=== PATIENT | female | born 1985 | race African-American/Black ===

== ENCOUNTER 2017-09-04 14:55 | Outpatient (CLI) | payer MEDICAID, SELFPAY ==
[2017-09-04 15:29] VITALS: BMI 55.1
[2017-09-04 16:27] LABS: Hematocrit 34.3 % (37-47); Hemoglobin 11.3 g/dl (12.0-15.0); Mean Corp Hgb Conc 32.9 g/gl (32-36); Mean Corpuscular Hgb 28.5 pg (27.0-32.0); Mean Corpuscular Volume 86.4 fL (81-99); Mean Platelet Vol. 9.5 fl (6.2-12.0); Platelet Count 236 K/mm3 (150-450); RBC Distribution Width CV 13.5 % (11.6-14.6); RBC Distribution Width SD 42.7 fl (35.1-43.9); Red Blood Count 3.97 M/mm3 (4.2-5.4); White Blood Count 6.4 K/mm3 (4.4-11.0)
[2017-09-04 17:01] LABS: Prothrombin Time (Protime)PT. 13.4 SECONDS (11.7-14.9)
[2017-09-04 17:02] LABS: Partial Thromboplast Time 30.7 Seconds (24.1-36.2)
[2017-09-04 17:08] LABS: AST(SGOT) 10 U/L (15-37); Alanine Aminotransfer ALT/SGPT 9 U/L (13-56); EST Glomerular Filtration Rate 196 mL/min (>60); Est Glom Filt Rate - Afr Amer 238 mL/min (>60); Scan Indicated on CBC? Y/N NO; Uric Acid 4.1 mg/dL (2.6-6.0)
[2017-09-04 17:17] LABS: Protein, Urine (Random) 11.8 mg/dL (<11.9); Protein:Creat Ratio 87 mg/g CRE (0-200)
--- NOTE | 2017-09-04 20:09 | OB.TRI.NOTE ---
History of Present Illness Date of Service: 09/04/17 Was patient seen by the physician?: No Reason For Visit: R/O PE Date of Service: 09/04/17 Final SHERRON: 11/10/17 Gestational age: 30 Weeks and 3 Days Home Medications Medication Instructions Recorded Vits [Prenatabs FA] 1 tablet PO DAILY 09/04/17 Allergies No Known Allergies Allergy (Verified 09/04/17 17:24) NST - FHR Rate Baby A Baseline: 145 Variability:: Moderate Accelerations:: 15 x 15 Decelerations:: Variable NST Reactive:: Yes Uterine Activity:: None Impression/Plan A: Elevated weight gain P: 1) Follow up in 3 days for BP check in office 2) Labs normal, 24hr urine to be done, started on unit and to return tomorrow.
[2017-09-05 19:24] LABS: 24 Hour Urine Protein 124.3 mg/24HR (<150 MG/24HR); 24HR. UA Prot. Total Volume 1100 mL; 24HR. Urine Creatinine 2.04 g/24 HR (0.70-1.90); Urine Protein (24 Hour) 11.3 mg/dL (<11.9)
== END 2017-09-04 18:15 | disposition home or self-care (01) ==
LOC: WPOUT 15:27 → WP 15:27
PROVIDERS: Visit Provider Advanced Practice Midwife
DX: O26.03 Excessive weight gain in pregnancy, third trimester (principal); Z3A.30 30 weeks gestation of pregnancy
CPT/HCPCS: 36415; 59025; 59050; 81050; 82565; 82570; 84156; 84450; 84460; 84550; 85027; 85610; 85730; 99218; G0378

== ENCOUNTER 2017-09-17 18:20 | Outpatient (CLI) | payer MEDICAID, SELFPAY ==
[2017-09-17 18:45] VITALS: BMI 54.8
--- NOTE | 2017-09-17 19:19 | OB.TRI.NOTE ---
History of Present Illness Date of Service: 09/17/17 Was patient seen by the physician?: Yes Reason For Visit: R/O LABOR Final SHERRON: 11/10/17 Gestational age: 32 Weeks and 2 Days Home Medications Medication Instructions Recorded Vits [Prenatabs FA] 1 tablet PO DAILY 09/04/17 Allergies No Known Allergies Allergy (Verified 09/04/17 17:24) NST - FHR Rate Baby A Baseline: 140 Variability:: Moderate Accelerations:: 15 x 15 Decelerations:: Variable NST Reactive:: Yes Uterine Activity:: quiet Impression/Plan Reactive NST for headache in Headache - mild - patient advised to take tylenol & rest GERD - advised on pepcid Call office in am if headache persists Advised ED evaluation for severe headache or vision changes
== END 2017-09-17 19:45 | disposition home or self-care (01) ==
LOC: WPOUT 18:24 → WP 18:25
PROVIDERS: Visit Provider Obstetrics & Gynecology
DX: O26.893 Other specified pregnancy related conditions, third trimester (principal); R51 Headache; K21.9 Gastro-esophageal reflux disease without esophagitis; Z3A.32 32 weeks gestation of pregnancy
CPT/HCPCS: 59025; 59050; 99218; G0378

== ENCOUNTER 2017-11-09 21:10 | Inpatient (IN) | payer MEDICAID, SELFPAY ==
--- NOTE | 2017-11-09 21:10 | DT_ITS ---
This patient was seen during an EMR downtime November 09, 2017 - November 16, 2017. This patient may have a combination of paper and electronic documentation or all paper documentation. All documentation is viewable within the e-chart portion of [email or web address] for each patient visit.
--- NOTE | 2017-11-10 01:15 | PLAC_PTH ---
PATIENT: DIA HINTON LOC: [facility] U#:[id number] AGE/SX: 32/F ROOM: WP004 RE11/09/[address]: Dr. Judith Hester MD : 1985 BED: 1 DIS: 11/12/2017 SPEC #: [id number] RECD: 11/10/17 04:28 STATUS: ANNE RETamra #: [id number] EUSEBIO: 11/10/17 01:[address]: Judith Hester DEPT: SURGICAL PATHOLOGY RECD BY: Madeline Knenedy ENTERED: 11/14/17 11:17 SP TYPE: PLACENTA OTHR DR: No Primary Care Phys Tissues: Placenta, NOS Procedures: Surgery Specimen Level V HEADER OPERATION: Not noted PRE-OP DIAGNOSIS: Meconium fluid, nonreassuring FHTS TISSUE SUBMITTED: Placenta MICROSCOPIC DIAGNOSIS Placenta: Placental disc - third trimester placenta (586 gm). - Multiple areas of intraparenchymal hemorrhage. - Focal mild acute vasculitis of subamniotic blood vessels. - surface with fibrinous plaque and focal area of squamous metaplasia and hyperkeratosis. See comment. Membranes ? pigment-laden macrophages consistent with meconium staining. Umbilical cord - three blood vessels and acute funisitis. SJ:maryanne 11/14/17 COMMENT The granular deposit on the surface of the placenta shows areas of squamous metaplasia and hyperkeratosis. MICROSCOPIC DESCRIPTION Slides are reviewed. GROSS DESCRIPTION SPECIMEN: PLACENTA / CLINICAL INFORMATION: A. Weight: Unavailable B. Gestational Age: Unavailable C. Sex: Male PLACENTAL WEIGHT (POST FIXATION): 586 gm PLACENTAL DIMENSIONS: 18 x 15 x 4 cm PLACENTAL SHAPE: Usual ovoid PLACENTAL WEIGHT FOR GESTATIONAL AGE: Within 10-99th percentile. MEMBRANES - Present A. Insertion: Marginal B. Site of rupture from edge: 5 cm from edge of placental disc C. Color of membrane: Parker-greenish consistent with meconium staining D. Abnormalities: None UMBILICAL CORD - Present A. Color: Praker-barahona B. Insertion: Paracentral C. Length: 54 cm D. Diameter: 1.4 cm E. Number of vessels: Three F. Abnormalities: None PLACENTAL DISC - Present A. Color of surface: Parker-barahona B. surface abnormalities: The surface shows multiple plaques and greenish-parker colored granular deposits. C. Maternal cotyledons: Intact with minimal tears D. Attached retro placental clot: No clot E. Cut surface: Dark red and spongy F. Lesions: None G. Separate clot: Absent The maternal surface shows central depression with some blood clots. Sections reveal three pink-red lesions, the largest measuring 2 cm in greatest dimension. SECTIONS SUBMITTED: 1. Membrane roll 2. Cord, maternal end, lesion on surface 3. Cord, end, lesion on surface 4. Placental disc, and maternal surfaces, lesion 5. Placental disc, and maternal surfaces, lesion 6. Placental disc, and maternal surfaces, lesion, central area of depression with blood clots and plaque on surface 7. Placental disc, and maternal surfaces 8. Membrane SJ:maryanne 11/10/17 TC:2 CPT: 14483
--- NOTE | 2017-11-11 16:03 | CASEMGMT ---
Social Work Assessment Labor and Delivery Unit Date of Referral: 11/11/17 Time of Referral: 0830 Referred By: verbal notification from nursing Date of Intervention: 11/11/2017 Time of Intervention: 1540 Reason for Referral: Late care, housing instability during History obtained from: Medical record and mother of baby (MOB) Agapito Gutierrez Household composition: MOB reports to live in apartment with father of baby (FOB) Libby Gutierrez and 4 older children. Plan is to take infant to this home at discharge. MOB has been living in this home since June of 2017. Patient's parent/guardian status: MOB reports has been with FOB for about 4 years. MOB and FOB are currently . MOB and FOB now share 2 children together and MOB has 3 children from previous marriage. Minor Children: Jean (age 14), Diandre (age 11), Audie (age 4), Acoridae (2 years) and Ayamide (6-5-18). MOB denies any form of abuse in relationship with FOB. The father to the older children is inconsistent in involvement with older children. Medical History: MOB is G5, P4 to 5 after delivering . MOB with later care starting at 17 weeks. MOB reports was unaware of for some time, that actually thought had cancer and when went in to figure out what was wrong MOB found out was . was born via repeat caesarian section with Apgars of 8 and 9 at 1 and 5 minutes of life. Educational Status: MOB graduated high school and has some college. MOB denies any issues with reading, writing, or learning comprehension. Financial Status: NARCISO currently stays at home. 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 Supplies: MOB reports to have needed baby supplies including crib, pack-n-play, clothing, diapers, wipes, getting a breast pump. MOB plans to provide breast milk only. Childcare/Caregiver(s): MOB Transportation: Denies any issues with transportation. Programs/Agencies Involved: MOB reports to have food and medical through [employer]. Reports to have WIC. MOB did use [employer] earlier in the when the family became homeless, in order to access some housing assistance in the area. Children Services/Legal Issues: MOB denies legal issues, denies past or present involvement with any children services agency. Behavioral Health Issues: MOB denies any history of depression, anxiety, or suicidal ideation. Through conversation MOB did disclose some past relationship issues which MOB received some support for. MOB denies any alcohol use or abuse, denies use in . MOB admits to history of smoking marijuana, prior to knowledge of and did quit shortly after finding out. MOB reports there was one lapse when MOB became stressed out that used, but that this was a onetime thing after knowledge of . MOB denies intent to use marijuana again and able to voice that knows breast feeding and marijuana are not recommended. MOB denies other illicit drug corinne history. Drug Screens: positive test 06-04-17 for marijuana, no further retesting. Babys urine at delivery is negative. Meconium to be collected. Family/Social Stressors: MOB reports unplanned , thought had cancer so was quite surprised about this . MOB reports the FOB then lost job, so the family lost their housing and credit was impacted, leaving the family homeless for a time. MOB reports relocated to [place] as found this area to have some housing assistance they could tap into. MOB reports spent a short time at [employer] and the family was able to secure housing about 6 months ago in June 2017. Support Systems: MOB reports FOB is a strong support. MOB reports to have a good [employer] family at this time. MOB reports feels able to seek out help and support with people from [facility]. ASSESSMENT: MOB reports to feel connected to baby, to love the baby, but does admit that had hoped for a girl. MOB reports to be accepting that God has plans for MOB and MOB having boys. MOB reports to have supplies for baby, ability to provide for other children, and to have support in this area. MOB denies intent to restart use of marijuana, especially while breast feeding. MOB engaged with social studies department chair, though at first was guarded as evidenced by shortened answers and minimal eye contact. However as time went on, MOB became more talkative and discussed frustrations and recent stressors in life, improved eye contact and brighter affect noted. MOB held good eye contact overall, appropriate mood and affect, speech within normal limits. MOB held baby during social work visit, attentive to baby, held baby to breast, smiled and gently talked to baby. MOB educated to need for children services involvement should babys meconium drug screen come back positive for any substances. MOB accepted this education. PLAN: Social work to follow up with MOB on 11-12-17 to provide community resource lists. -GLENDA Gray, DIE CAST SUPERVISOR
--- NOTE | 2017-11-12 16:06 | CASEMGMT ---
Social Work Note Labor and Delivery Unit Followed up with mother of baby (MOB) and provided packet on depression, risks for this, tips on self-care and online supports for such. Provided resources list for [facility], [facility] information, shaken baby/tips to soothe baby, and safe sleeping information. No other services requested or indicated other than monitoring for meconium drug screen results. MOB and baby discharging home today. _-WILNER Gray, SOFTWARE ENGINEERING ANALYST
[2017-11-13 08:58] LABS: Hematocrit 36.9 % (37-47); Mean Corp Hgb Conc 32.5 g/gl (32-36); Mean Corpuscular Hgb 28.2 pg (27.0-32.0); Mean Corpuscular Volume 86.6 fL (81-99); Red Blood Count 4.26 M/mm3 (4.2-5.4)
[2017-11-13 08:59] LABS: Mean Platelet Vol. 9.8 fl (6.2-12.0); Platelet Count 318 K/mm3 (150-450); RBC Distribution Width SD 43.1 fl (35.1-43.9); Scan Indicated on CBC? Y/N NO
== END 2017-11-12 13:10 | disposition home or self-care (01) | DRG 371 ==
PROVIDERS: Admitting Provider Obstetrics & Gynecology; Visit Provider Obstetrics & Gynecology
DX: O34.211 Maternal care for low transverse scar from previous cesarean delivery (principal); N85.8 Other specified noninflammatory disorders of uterus; Z3A.40 40 weeks gestation of pregnancy; Z37.0 Single live birth; O99.214 Obesity complicating childbirth; E66.01 Morbid (severe) obesity due to excess calories; Z68.41 Body mass index [BMI] 40.0-44.9, adult; O77.0 Labor and delivery complicated by meconium in amniotic fluid; O76 Abnormality in fetal heart rate and rhythm complicating labor and delivery; O69.1XX0 Labor and delivery complicated by cord around neck, with compression, not applicable or unspecified
CPT/HCPCS: 59025; 59050; 76815; 85027; 86850; 86900; 88307; 99218; J7120; A4216; G0378; J2405

== ENCOUNTER 2020-10-21 12:26 | Emergency (ER) | payer MEDICAID, SELFPAY ==
[2020-10-21 12:28] VITALS: BP 161/75; PULSE 112; RESP 18; TEMP 36.3; O2SAT 94; BMI 56.6
--- NOTE | 2020-10-21 12:48 | US_ITS ---
EXAM: US SECOND OR THIRD TRIMESTER , TRANSABDOMINAL : 1985 CLINICAL INDICATION: preg and bleeding. //ectopic vs miscarriage TECHNIQUE: Transabdominal obstetrical ultrasound of the maternal pelvis and a second or third trimester with image documentation. This report was created using [employer] report generation technology. COMPARISON: None. FINDINGS: FETUS: There is a single intrauterine gestation HEART RATE: heart rate measured 145 bpm. PRESENTATION: There is an intrauterine gestation in the cephalic position. PLACENTA: The placenta is posterior. No placenta previa. No abruption. AMNIOTIC FLUID: The deepest vertical pocket of amniotic fluid is 3.5 cm. ANATOMY: Intracranial/face anatomy not seen. Spinal anatomy not seen. Abdominal anatomy not seen. Extremities not seen. Four-chamber heart not seen. Umbilical cord not seen. BIOMETRICS GESTATIONAL AGE: Gestational age is 14 weeks 6 days. SHERRON: SHERRON is 04/15/2021. EFW: Estimated weight is 157 g. BPD: Biparietal diameter measures 3.3 cm age 16 weeks 2 days. HC: Head circumference measures 13.1 cm age 16 weeks 4 days. AC: Abdominal circumference measures 10.4 cm age 16 weeks 2 days. FL: Femur length measures 2.2 cm age 16 weeks 4 days. MATERNAL: UTERUS: The uterus measures 17.6 x 9.5 x 12.4 cm. No myometrial mass. CERVIX: The cervix measures 3.4 cm. ADNEXA: The left ovary measures 4.5 x 2.9 x 2.8 cm. Right ovary is not visualized. FREE FLUID: None. US/OB Limited With Biometrics IMPRESSION: Intrauterine gestation with an average ultrasound age of 16 weeks 3 days and ultrasound estimated due date of 04/04/2021. heart rate is 145 bpm. at 1426 Reported and signed by: Ronaldo Romero MD Electronically Signed: Ronaldo Romero MD at 14:25 EDT Tel , Service support ,
--- NOTE | 2020-10-21 12:50 | EDS_ITS ---
HPI HPI - Female History of Present Illness Chief Complaint: Vag Bld, Preg Informant: patient Pain Pain: Positive for Pelvic Pain Onset: Today Timing: Intermittent Current Severity: Mild Maximum Severity: Mild Bleeding Issue: Positive for Vaginal bleeding Onset: Yesterday Timing: Intermittent Current Severity: Spotting Associated Symptoms Associated Symptoms: Negative for Dysuria and Frequency Test: Positive Sexually: Positive for Active Control: No control P: 5 Ab: 0 Narrative Narrative: 35-year-old female G6, P5 Ab0. States she just found out last week that she was on her home test. Says her last menstrual period was around July 09. She did not have a. In August or October. States yesterday she started having mild discomfort in her left lower pelvis with mild spotting. She denies any heavy bleeding. No dysuria. No fever. She is never had a miscarriage or an ectopic. She denies any [employer] surgeries except 2 prior C-sections. She is never had any PID other pelvic infections. Prior similar symptoms: No Recent Illness/Hospitalization: No PFSH PFSH Home Medications vit,[id number] [Prenatabs FA] 1 tab PO DAILY 09/04/17 [History Last Taken 09/17/17 10:00 1] Allergy/AdvReac Type Severity Reaction Status Date / Time No Known Allergies Allergy Verified 10/21/20 12:31 Surgical History (Updated 10/21/20 @ 14:34 by Michael Graf) History of arthroplasty of left ankle Social History Smoking Status: Never smoker ROS ROS ED ROS Narrative Patient states now that she knows she is she has had some morning nausea in the last month or 2. She denies other symptoms. Review of Systems ROS Unobtainable: Denies due to encephalopathy Constitutional Constitutional ED: Denies chills or fever(s) Eyes Eyes: Denies change in vision ENT ENT ED: Denies ear pain or sore throat Cardiovascular Cardiovascular: Denies chest pain Respiratory/Chest Respiratory/Chest: Denies cough or dyspnea Gastrointestinal Gastrointestinal: Reports abdominal pain and nausea; Denies constipation, diarrhea or vomiting Genitourinary Genitourinary ED: Denies dysuria or hematuria Musculoskeletal Musculoskeletal: Denies myalgias Integumentary Denies rash Neurologic Neurologic: Denies headache(s) Psychiatric Psychiatric: Denies depression Endocrine Endocrinology: Denies polyuria Hematologic/Lymphatic Hematologic/Lymphatic: Denies easy bruising Allergic/Immunologic Allergic/Immunologic ED: Denies urticaria EXAM Physical Exam Narrative Exam Narrative: Well-appearing 35-year-old female. Initial blood pressure 161/75. She does not look septic or toxic. No acute distress. Lungs are clear. Heart regular rhythm no murmur rate about 100. Abdomen soft. Minimal lower left pubic tenderness. No rebound or guarding. No rigidity. Right upper and right lower quadrant unremarkable. No peritoneal signs. Moving all 4 extremities. No edema. Neurologically she is awake and alert. Patient is deferring a pelvic exam at this time. Const Vital Signs: 10/21/20 12:28 10/21/20 14:32 Temperature 97.4 F L Temperature Source Temporal Pulse Rate 112 H Respiratory Rate 18 16 Blood Pressure 161/75 H Blood Pressure Mean 103 Pulse Ox 94 Oxygen Delivery Method Room Air Positive well nourished and well developed General Appearance ED: well developed HEENT Reports moist mucous membranes Negative for trauma or tenderness Eyes PERRL and EOMs intact bilaterally Neck no lymphadenopathy, supple and no JVD Chest Wall inspection of chest normal Resp normal respiratory effort and clear to auscultation bilaterally Cardio regular rate and regular rhythm GI normal to inspection, nondistended, normoactive bowel sounds and soft to palpation GI Narrative: Minimal tenderness left Palpation: tender no CVA tenderness Back/Spine no CVA tenderness Extremity normal to inspection and full ROM General Extremety ED: Negative for edema or tenderness General Extremity: Negative for edema Neuro oriented x3 and CN's II-XII intact bilaterally Sensorium / Orientation: alert, oriented to person, oriented to place and oriented to time Psych mental status grossly normal Skin no rashes or lesions noted MDM MDM MDM Narrative Medical decision making narrative: 35-year-old G6, P5 Ab0 female with positive home test and small vaginal spotting and mild left lower quadrant pelvic discomfort. Her blood type is O+ from prior labs. We will obtain screening labs and a pelvic ultrasound. Lab Data Attestation: I reviewed the patient's lab results. Lab results narrative: CBC unremarkable white count of six hemoglobin 11.8. UA shows ketones but no signs of infection. Quant is pending. Prior blood type was O+. Ultrasound shows a intrauterine at 16 weeks and 3 days estimated date of delivery is 04/15/2021 and a fetus's heart rate is 145. On repeat exam patient is doing well at 3:04 PM. Resting comfortably. She and I went over all test results. [facility] they are her established MANAGEMENT PROFESSIONAL. Labs: Laboratory Results - last 24 hr 10/21/20 10/21/20 14:32 14:45 WBC 6.3 RBC 4.21 Hgb 11.8 L Hct 37.1 MCV 88.1 MCH 28.0 MCHC 31.8 L RDW Std Deviation 43.2 RDW Coeff of Rhonda 13.3 Plt Count 276 MPV 9.3 Immature Gran % (Auto) 0.300 Neut % (Auto) 65.0 Lymph % (Auto) 25.3 [place] % (Auto) 7.9 Eos % (Auto) 1.3 Baso % (Auto) 0.2 Absolute Neuts (auto) 4.1 Absolute Lymphs (auto) 1.60 Nucleated RBC % 0 Urine Color Yellow Urine Clarity Sl. Cloudy Urine pH 6.5 Ur Specific Higginson 1.015 Urine Protein Negative Urine Glucose (UA) Normal Urine Ketones 150 A* Urine Occult Blood 50 H Urine Nitrite Negative Urine Bilirubin Negative Urine Urobilinogen Normal Ur Leukocyte Esterase 25 H Urine RBC 0-5 SEEN Urine WBC 0-5 SEEN Ur Squamous Epith Cells 0-5 SEEN Urine Bacteria RARE Urine Mucus RARE Radiography Diagnostic Testing: Radiology Impression Obstetrics Ultrasound 10/21/20 12:48 IMPRESSION: Intrauterine gestation with an average ultrasound age of 16 weeks 3 days and ultrasound estimated due date of 04/04/2021. heart rate is 145 bpm. at 1426 Reported and signed by: Ronaldo Romero MD Electronically Signed: Ronaldo Romero MD at 14:25 EDT Tel , Service support , Discharge Plan Triage Chief Complaint: Vag Bld, Preg ED Provider: Ben Zuluaga Dx/Rx/DC Orders Clinical Impression: Threatened miscarriage Instructions: ED Possible Miscarriage ... Prescriptions: No Action Prenatabs FA 1 TABLET tablet 1 tab PO DAILY RF: 0 Primary Care Provider: Care Physician,No Primary Referrals: Judith Hester MD [STAFF PHYSICIAN] - As soon as possible Care Physician,No Primary [Primary Care Provider] - Activity Restrictions/Additional Instructions: Follow-up with your MANAGEMENT PROFESSIONAL. Currently you have a healthy at 16 weeks and 3 days. Due date is around April 15, 2021. Anytime you have bleeding in early is a risk for possible miscarriage but at this time everything looks well. Disposition Disposition: Home, self care
[2020-10-21 14:32] VITALS: RESP 16
[2020-10-21 14:42] LABS: Absolute Neutrophil Count 4.1 X10^3/uL (2.0-7.7); Basophil# 0.01 X10^3/uL; Basophil% 0.2 % (0-1); Eosinophil# 0.08 X10^3/uL; Eosinophils% 1.3 % (0-5); Hematocrit 37.1 % (37-47); Hemoglobin 11.8 g/dL (12.0-15.0); Lymphocyte % 25.3 % (19-41); Mean Corp Hgb Conc 31.8 g/dL (32-36); Mean Corpuscular Volume 88.1 fL (81-99); Mean Platelet Vol. 9.3 fl (6.2-12.0); Monocyte% 7.9 % (0-10); NRBC Flagged by Analyzer 0 % (0-5); Neutrophil # 4.12 X10^3/uL (2.7-7.7); Platelet Count 276 K/mm3 (150-450); RBC Distribution Width CV 13.3 % (11.6-14.6); RBC Distribution Width SD 43.2 fl (35.1-43.9); Red Blood Count 4.21 M/mm3 (4.2-5.4); White Blood Count 6.3 K/mm3 (4.4-11.0)
[2020-10-21 14:52] LABS: Color, Urine Yellow (Yellow); Glucose, Dipstick Normal (Normal); Leukocyte Esterase-Dipstick 25 /ul (Negative); Nitrite-Dipstick Negative (Negative); Occult Blood-Urine 50 /ul (Negative); Protein-Dipstick Negative (Negative); Specific Gravity, Urine 1.015 (1.002-1.030); Urine Bilirubin Dipstick Negative (Negative); Urine Clarity Sl. Cloudy (Clear); Urine Urobilinogen Normal (Normal); Urine pH 6.5 (5.0 - 8.0)
[2020-10-21 14:55] LABS: Ketone-Dipstick 150 mg/dl (Negative)
[2020-10-21 15:00] LABS: Bacteria RARE /hpf (None Seen); Mucous, Urine RARE /hpf (<or=2+); Red Blood Cells-Urine 0-5 SEEN /hpf (0-5); Squamous Epithelial Cells - UA 0-5 SEEN /hpf (5-10); White Blood Cells 0-5 SEEN /hpf (0-5)
[2020-10-21 15:04] VITALS: BP 144/99; PULSE 84; RESP 16; O2SAT 100
[2020-10-21 15:46] LABS: hCG Titer Quant., Serum 13282 mIU/mL (1-3)
== END 2020-10-21 15:18 | disposition home or self-care (01) ==
PROVIDERS: Emergency Provider Emergency Medicine
DX: O20.0 Threatened abortion (principal)
CPT/HCPCS: 76816; 81001; 84702; 85025; 99283; A4216

== ENCOUNTER 2021-01-23 21:00 | Outpatient (CLI) | payer MEDICAID, SELFPAY ==
[2021-01-23 21:30] VITALS: BP 141/71; PULSE 90; TEMP 36.1; O2SAT 98
[2021-01-23 21:37] VITALS: BMI 53.5
[2021-01-23 21:46] VITALS: BP 140/66; PULSE 90
[2021-01-23 21:48] LABS: Color, Urine Yellow (Yellow); Glucose, Dipstick Normal (Normal); Ketone-Dipstick 5 mg/dl (Negative); Leukocyte Esterase-Dipstick 25 /ul (Negative); Nitrite-Dipstick Negative (Negative); Occult Blood-Urine 50 /ul (Negative); Protein-Dipstick 30 mg/dl (Negative); Urine Bilirubin Dipstick Negative (Negative); Urine Clarity Clear (Clear); Urine Urobilinogen Normal (Normal)
[2021-01-23 22:01] VITALS: BP 138/65; PULSE 92
[2021-01-23 22:16] VITALS: BP 143/67; PULSE 90
--- NOTE | 2021-01-24 07:43 | OB.TRI.NOTE ---
HPI - General HPI Narrative DIA HINTON, is a 35 F @29.6 weeks who presents c/o cramping and diarrhea Maternal Data Information Final SHERRON: 04/04/21 PFSH PFSH Home Medications vit,[id number] [Prenatabs FA] 1 tab PO DAILY 09/04/17 [History Last Taken 01/23/21] Allergy/AdvReac Type Severity Reaction Status Date / Time No Known Allergies Allergy Verified 10/21/20 12:31 Surgical History (Updated 10/21/20 @ 14:34 by Michael Graf) History of arthroplasty of left ankle Social History Smoking Status: Never smoker NST FHR Rate Baby A Baseline: 140 Variability:: Moderate Accelerations:: 10 x 10 Decelerations:: None NST Reactive:: Yes FHR Category:: Category I Uterine Activity:: none Assessment & Plan (1) Cramping affecting , antepartum: (2) Obesity affecting : PLAN: 35yo @ 29.6 weeks c/o diarrhea and cramping 1) UA- sent - culture sent based on results 2) PO hydration 3) recommend covid testing based on symptoms- pt declined tonight and declined via office phone call earlier in day 4) follow up in office thursday01/25/21 5) NOT IN LABOR- ve: closed/thick/high per RN
== END 2021-01-23 22:25 | disposition home or self-care (01) ==
LOC: WPOUT 21:10 → WP 21:10
PROVIDERS: Visit Provider Obstetrics & Gynecology
DX: O99.891 Other specified diseases and conditions complicating pregnancy (principal); O99.213 Obesity complicating pregnancy, third trimester; Z3A.29 29 weeks gestation of pregnancy; R19.7 Diarrhea, unspecified; E66.9 Obesity, unspecified
CPT/HCPCS: 59025; 59050; 81002; 87086; 87088; 99218; G0378

== ENCOUNTER 2021-03-27 16:30 | Inpatient (IN) | payer MEDICAID, SELFPAY ==
[2021-03-27] VITALS (8 sets, daily range): BP systolic 130–145; BP diastolic 64–93; PULSE 92–104; TEMP 36.6–36.8; BMI 52.5
[2021-03-27] MEDS: Lactated Ringers 1,000 ML 50 ML IV (17:10)
[2021-03-27 17:26] LABS: Absolute Neutrophil Count 3.3 X10^3/uL (2.0-7.7); Basophil# 0.01 X10^3/uL; Basophil% 0.2 % (0-1); Eosinophil# 0.08 X10^3/uL; Eosinophils% 1.5 % (0-5); Hematocrit 35.2 % (37-47); Hemoglobin 11.2 g/dL (12.0-15.0); Lymphocyte % 24.8 % (19-41); Mean Corp Hgb Conc 31.8 g/dL (32-36); Mean Corpuscular Hgb 28.1 pg (27.0-32.0); Mean Corpuscular Volume 88.2 fL (81-99); Mean Platelet Vol. 9.7 fl (6.2-12.0); Monocyte# 0.55 X10^3/uL; Monocyte% 10.5 % (0-10); NRBC Flagged by Analyzer 0 % (0-5); Neutrophil # 3.28 X10^3/uL (2.7-7.7); Neutrophil % 62.4 % (47-70); Platelet Count 298 K/mm3 (150-450); RBC Distribution Width CV 13.2 % (11.6-14.6); RBC Distribution Width SD 42.7 fl (35.1-43.9); Red Blood Count 3.99 M/mm3 (4.2-5.4); White Blood Count 5.3 K/mm3 (4.4-11.0)
[2021-03-27] MEDS: 0.9% Normal Saline Single 100 ML IV.SOLN. INTRA-UTER (17:30)
[2021-03-27] MEDS: Oxytocin 30 units/NS 500 ml 30 UNITS/500 ML IV.SOLN IV (19:53)
--- NOTE | 2021-03-27 20:27 | HP.PCM.OB_ITS ---
HPI - General General Date of Admission: 03/27/21 HPI Narrative DIA HINTON, 35-year-old 6 para 5-0-0-5 who presents at 38-6/7 weeks with EDC of 04/04/2021 for maternal obesity. She prevents for cervical ripening. has been complicated to date by history of 2 previous c esarean sections, history of genital herpes, he history of a LEEP of the cervix, history of macrosomia with previous deliveries. Estimated weight for this is greater than 94th percentile. She has a history of 3 vaginal deliveries and 2 C-sections. The first was for breech, the second was her last for intolerance of labor. Maternal Data Information Final SHERRON: 04/04/21 Final SHERRON Source: US <20 weeks Gestational age: 38 6/7 [facility] Medical History (Updated 03/27/21 @ 20:[address] Judith Hester MD) Back pain BMI greater than 40 Gastric reflux History of edema macrosomia Non-smoker Shortness of breath on exertion Wears glasses Home Medications Raspberry [place] Supplement 3 tab PO/SL DAILY 03/13/21 [History Last Taken Unknown] evening primrose oil [Evening [place]] 1,300 mg PO BID 03/13/21 [History Last Taken Unknown] Allergy/AdvReac Type Severity Reaction Status Date / Time No Known Allergies Allergy Verified 03/27/21 17:08 Surgical History (Updated 03/27/21 @ 20:[address] Judith Hester MD) History of arthroplasty of left ankle History of gynecologic surgery History of surgery Hx of section Hx of surgical procedure Social History Smoking Status: Never smoker History Elective abortions Hx Para 5 Spontaneous abortions Hx # Term Pregnancies Ectopic pregnancies Hx # Pregnancies Multiple births # of living children ROS Constitutional Constitutional: Denies fatigue, fever(s) or malaise Eyes Eyes: Denies change in vision ENT HEENT: Denies dizziness or headache(s) Cardiovascular Cardiovascular: Denies chest pain, dyspnea or lightheadedness Respiratory/Chest Respiratory/Chest: Denies cough or dyspnea Gastrointestinal Gastrointestinal: Denies change in bowel habits Genitourinary Genitourinary: Denies burning urination or genital lesions Integumentary Integumentary: Denies rash Neurologic Neurologic: Denies confusion, dizziness, headache(s), numbness or weakness Vital Signs Vital Signs Vital Signs: Weight Weight: 138.799 kg Body Mass Index (BMI) 52.5 Physical Exam Narrative GYN_ no lesions noted on vagina, cervix or vulva Const alert and no apparent distress General Appearance: cooperative HEENT normocephalic Resp normal respiratory effort Cardio regular rate GI soft to palpation GI Narrative: gravid, nontender, appropriate for gestational age Extremity no calf tenderness General Extremity: edema Skin no wounds Rashes: No rashes noted Psych activity/motor behavior normal Labs Labs Labs: Blood Type O POSITIVE Antibody Screen NEGATIVE Hct 35.2 % (37-47) L Hgb 11.2 g/dL (12.0-15.0) L Obstetrics US Assessment & Plan (1) Obesity affecting : (2) Previous delivery affecting : PLAN: 35-year-old female for induction of labor to do high risk multigravida. Risk benefits and alternatives to induction of been discussed with the patient, questions were answered to her satisfaction she desired to proceed. We will proceed with Cadena ripening. Pitocin and artificial rupture membranes as needed for induction. Patient's been counseled extensively in the office. A repeat has been recommended but she declines this. She understands risk to her and the should she have a uterine rupture, should she need an emergent section and we were unable to secure her airway. She declines epidural placement. EFW is < 4500 gm clinically and pelvis is clinically adequate to expect vaginal deliveyr (3) Adult BMI 50.0-59.9 kg/sq m: (4) Grand multipara:
--- NOTE | 2021-03-27 20:35 | PCM.PN.BLA ---
Progress Note Earlier this evening a Cadena catheter was placed over a stylette through the internal cervical os in the usual sterile fashion. The balloon was inflated to 30 cc and placement over the internal cervical os was confirmed. heart tones were normal baseline with moderate variability and spontaneous accelerations. We will proceed with Cadena cervical ripening. Will initiate Pitocin after patient orders dinner and went acuity of the unit allows.
[2021-03-27] MEDS: Penicillin G 3,000,000 Units 50 ML 100 UNITS IV (22:30)
[2021-03-28] VITALS (45 sets, daily range): BP systolic 103–177; BP diastolic 55–98; PULSE 66–126; RESP 16; TEMP 36.2–36.8; O2SAT 96–100
[2021-03-28 00:18] LABS: Amphetamine Urine VISTA NEGATIVE (<1000 ng/mL); Barbiturate Urine VISTA NEGATIVE (< 200 ng/mL); Benzodiazepine Urine VISTA NEGATIVE (< 200 ng/mL); Cocaine Urine VISTA NEGATIVE (< 300 ng/mL); Ecstacy Urine VISTA NEGATIVE (< 500 ng/mL); Methadone Urine VISTA NEGATIVE (< 300 ng/mL); PCP Urine VISTA NEGATIVE (< 25 ng/mL); THC Urine VISTA NEGATIVE (< 50 ng/mL); Vista UDS pH Range 6
[2021-03-28] MEDS: Penicillin G 3,000,000 Units 50 ML 100 UNITS IV ×3 (02:37→10:41)
[2021-03-28] MEDS: Lactated Ringers 500 ML 999 ML IV (09:00)
[2021-03-28] MEDS: Lactated Ringers 1,000 ML 200 ML IV (09:31)
[2021-03-28] MEDS: fentaNYL-bupivacaine (epidural) 100 ML BAG EPIDURAL (10:16)
[2021-03-28] MEDS: Oxytocin 30 units/NS 500 ml 30 UNITS/500 ML IV.SOLN 334 UNITS IV (12:45)
--- NOTE | 2021-03-28 13:00 | EX.PCM.OBRPT ---
Assessment & Plan (1) Grand multipara: (2) (vaginal after ): Maternal Data Information Final SHERRON: 04/04/21 Gestational age: 39 Vaginal Delivery Maternal Presentation Maternal Presentation: Medically Indicated Induction Type of Induction: Pitocin, Cadena Bulb and Amniotomy Operative Information Date of Procedure: 03/28/21 Pre-Operative Diagnosis: labor Post-Operative Diagnosis: same Surgery / Procedure Performed: Type of Anesthesia: None Drain: Cadena to straight drain Estimated Blood Loss: 300 Time of Delivery: 12:43 Findings Description of Procedure: A vigorous [female] infant was delivered [HAMILTON] over intact perineum The remainder the was delivered with maternal pushing and gentle traction only in less than 15 seconds. The Pitocin infusion was initiated for active management of the third stage. The cord was clamped and cut [after 1 minute]. The was attended to by the waiting nursing staff. The placenta was delivered spontaneously and intact. The cervix and vagina were intact. Sponge and needle counts were correct. A vaginal sweep was completed by me. Presentation: HAMILTON Amniotic Membrane Rupture Type: Artificial Amniotic Fluid Description: Clear Placental Delivery Description: Spontaneous Placenta Disposition: [facility] Cord Vessel Description: 3 Vessels Cord Entanglement: None A Gender: Female (Veronica) (1 minute): 9 (5 minute): 9 Delayed Cord Clamping: Yes Post Vaginal Delivery Medications Given After Delivery: IV Pitocin Episiotomy Description: None Laceration: None Complication Complications: None
[2021-03-28] MEDS: Ibuprofen 600 MG Tablet PO (21:42)
[2021-03-28] MEDS: Acetaminophen 500 MG Tablet PO (23:03)
[2021-03-29 01:27] VITALS: BP 100/55; PULSE 88; RESP 14; TEMP 36.5
[2021-03-29] MEDS: Ibuprofen 600 MG Tablet PO (04:11)
[2021-03-29 04:17] VITALS: BP 113/64; PULSE 76; RESP 16; TEMP 36.1
[2021-03-29 08:00] VITALS: BP 109/64; PULSE 82; RESP 16; TEMP 36.3
--- NOTE | 2021-03-29 08:54 | PN.OBGYN_ITS ---
Subjective Subjective Patient seen at bedside. Requesting discharge home at 24 hours. Feeling good. Denies any pain. Ambulating and voiding without difficulty. with minimal support. Objective Data Objective Data Vital Signs: Vital Signs Temp Pulse Resp BP Pulse Ox 97.0 F L 76 16 113/64 100 03/29/21 04:17 03/29/21 04:17 03/29/21 04:17 03/29/21 04:17 03/28/21 17:37 Oxygen Delivery Method Room Air Weight: 306 lb Body Mass Index (BMI) 52.5 Intake & Output: Intake and Output for Last 24 Hours 03/27/21 03/28/21 03/29/21 23:59 23:59 23:59 Intake Total 282.77 / 282.77 2484.67 / 2484.67 Output Total 1000 / 1000 Balance 282.77 / 282.77 1484.67 / 1484.67 Lab / Micro Data Result Diagrams: 03/27/21 17:10 ROS Eyes Eyes: Denies blurry vision, change in vision or spots in vision ENT HEENT: Denies dizziness or headache(s) Cardiovascular Cardiovascular: Denies abdominal pain, chest pain or dyspnea Respiratory/Chest Respiratory/Chest: Denies cough, dyspnea, shortness of breath at rest or sh ortness of breath with exertion Gastrointestinal Gastrointestinal: Denies abdominal pain, diarrhea or vomiting Genitourinary Genitourinary: Denies change in urinary stream, difficulty urinating or dysuria Musculoskeletal Musculoskeletal: Reports none Integumentary Integumentary: Denies rash Neurologic Neurologic: Denies dizziness, headache(s), memory loss or weakness Physical Exam Const alert and no apparent distress General Appearance: cooperative and comfortable Exam Limitations: no limitations HEENT normocephalic Eyes General Eye: normal appearance of both eyes Neck full ROM General: normal visual inspection Chest Chest: symmetrical chest wall rise Resp normal respiratory effort and normal air movement Effort and Inspection: symmetric chest movement Auscultation: clear to auscultation bilaterally Cardio regular rate and regular rhythm GI normal to inspection, nondistended, normoactive bowel sounds Back/Spine normal ROM Extremity full ROM and no calf tenderness General Extremity: normal exam except as noted Skin no rashes or lesions noted Neuro CN's II-XII intact bilaterally Psych mental status grossly normal Assessment & Plan (1) (vaginal after ): (2) Obesity affecting : QUALIFIERS: Trimester: unspecified trimester Qualified Code(s): O99.210 - Obesity complicating , unspecified trimester PLAN: PPD 1 - intact Routine care support Discharge home with follow up in office
--- NOTE | 2021-03-29 08:55 | PCM.DC ---
Discharge Instructions Diet Discharge Diet: No restrictions Activity May resume sexual activity in: 6-8 weeks Weight Bearing Status: Weight bearing as tolerated Dressing / Incision Call your doctor if you observe: Fever of 101 or Higher, Inability to urinate, Using more than 1 pad per hour, Shortness of breath, Chest pain, Calf discomfort and Uncontrolled pain Follow Up Care When: 2 weeks virtual visit/ 6 weeks in office Test Results: Test results from this visit will be discussed in further detail at your follow-up appointment, if applicable. Discharge Plan Admission Admit Date/Time: 03/27/21 16:30 Primary Reason for Your Visit: Labor and delivery Attending Provider: Judith Hester Primary Care Provider: Care Physician,No Primary Discharge Orders/Prescriptions Prescriptions: Discontinued evening primrose oil [Evening [place]] 500 mg Capsule 1,300 mg PO BID RF: 0 Raspberry [place] Supplement 3 tab PO/SL DAILY RF: 0 Referrals / Follow Up: Care Physician,No Primary [Primary Care Provider] - Disposition Disposition (needs filled in before D/C Order can be placed): Home, Self Care
[2021-03-29 15:35] VITALS: BP 135/69; PULSE 85; RESP 16; TEMP 36.6
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
--- NOTE | 2021-03-29 16:30 | CASEMGMT ---
Social Work Labor and Delivery Unit Called [facility] and spoke with Dominique Fournier in the intake department, extension [id number]. Reported substance exposed in utero based off of second trimester drug screen. Reported additional negative drug testing. Reported that MOB refused urine drug screen for infant but that a meconium drug screen was collected. Brief maternal and history is per reported. Information will be documented and can be passed along to the ongoing worker. If additional concerns arise prior to discharge this film writer can alert children services as indicated for appropriate follow-up. Plan: MOB and infant will discharge home when ready. Children services is already involved with this family. Will monitor for meconium drug screen results. -WILNER Gray, NAVIGATION OFFICER *This note was generated with TicketBiscuitation software. It may contain incorrect words, spelling, and punctuation that were not noted in review of the chart prior to signing*
[2021-03-29 21:04] VITALS: BP 122/62; PULSE 70; RESP 18; TEMP 36.8
--- NOTE | 2021-03-29 22:45 | NURSING ---
This RN and Thom RN went into room after patient requested for baby's assessment, vital signs and weight to be done once infant is awake. Upon entering room, patient informs nurses that she observes the ba day according to her anglican beliefs which starts at sunrise on Thursday (03/30). Patient informs nurses that at this time of observing Sabbath, she is not able to work and they are not allowed to have work done for them which would include any patient care including vital signs and lab work. This RN asked about the pending bilirubin test and if it was appropriate to draw it at 0600 as ordered and patient requested for it to be drawn earlier for more time before sunrise for tasks to be accomplished. This RN called pelletising extruder operator, Dr. Elias, and explained patient's request and he stated that bilirubin level could be drawn at 0530 but to inform patient that the earlier it is drawn, there is greater risk for bilirubin level to be elevated, this RN verbalized understanding. This RN went back to bedside and informed patient of conversation with pelletising extruder operator and ability to draw lab result at 0530. Patient informed this RN that regardless of lab result, that patient will leave in the AM. This RN informed patient that if bilirubin level is still elevated the risks for infant and patient states that she has been doing her own research and knows it goes away in 2 months for most infants. This RN and patient agree to have more detailed conversation in morning if lab result is elevated.
[2021-03-30 03:20] VITALS: BP 131/79; PULSE 74; RESP 18; TEMP 36.7
[2021-03-30 05:45] VITALS: BP 150/81; PULSE 76; RESP 18; TEMP 36.7; O2SAT 96
--- NOTE | 2021-03-30 07:26 | PCM.DC ---
Discharge Instructions Diet Discharge Diet: No restrictions Activity May resume sexual activity in: 6-8 weeks Weight Bearing Status: Weight bearing as tolerated Dressing / Incision Call your doctor if you observe: Fever of 101 or Higher, Inability to urinate, Using more than 1 pad per hour, Shortness of breath, Chest pain, Calf discomfort and Uncontrolled pain Follow Up Care Test Results: Test results from this visit will be discussed in further detail at your follow-up appointment, if applicable. Discharge Plan Admission Admit Date/Time: 03/27/21 16:30 Primary Reason for Your Visit: Labor and delivery Attending Provider: Judith Hester Primary Care Provider: Care Physician,No Primary Instructions Forms: Information Patient Instructions: After a Vaginal Discharge Orders/Prescriptions Prescriptions: Discontinued evening primrose oil [Evening [place]] 500 mg Capsule 1,300 mg PO BID RF: 0 Raspberry [place] Supplement 3 tab PO/SL DAILY RF: 0 Referrals / Follow Up: Care Physician,No Primary [Primary Care Provider] - Disposition Disposition (needs filled in before D/C Order can be placed): Home, Self Care
--- NOTE | 2021-04-09 15:08 | CASEMGMT ---
Social Work Labor and Delivery 's meconium drug screen is back and positive for marijuana. Spoke with Dominique Fournier, intake screener, at [facility]. Referral given with positive lab results. No other services requested or indicated. -RICHY Gray, STUNT DOUBLE
== END 2021-03-30 07:38 | disposition home or self-care (01) | DRG 560 ==
PROVIDERS: Admitting Provider Obstetrics & Gynecology; Visit Provider Obstetrics & Gynecology
DX: O99.214 Obesity complicating childbirth (principal); E66.9 Obesity, unspecified; Z3A.38 38 weeks gestation of pregnancy; Z37.0 Single live birth
CPT/HCPCS: 59025; 59050; 80307; 85025; 86850; 86900; 86901; 99218; J7120; G0378; J3490